=== PATIENT | female | born 1985 | race Caucasian/White ===

== ENCOUNTER 2017-06-14 10:59 | Emergency (ER) | END 2017-06-14 12:49 | disposition left against medical advice (07) | LOC: UCEAST 10:59 | DX: H92.09 Otalgia, unspecified ear (principal); Z53.21 Procedure and treatment not carried out due to patient leaving prior to being seen by health care provider ==

== ENCOUNTER 2022-08-08 08:32 | Inpatient (IN) ==
[2022-08-08] MEDS ORDERED: Buffered Lidocaine 1% SYRIN 1 ml INTRADERM ONE (09:47)
[2022-08-08] MEDS ORDERED: Promethazine INJ(RESTRICTED) 25 MG/ML 1 ml VIAL IV PRN (09:47)
[2022-08-08] MEDS ORDERED: Lactated Ringers 1000 ml BAG 1,000 ML IV ONE ×2 (09:47→22:05)
[2022-08-08] MEDS ORDERED: Nalbuphine 10 MG/ML 1 ML VIAL IV PRN (09:47)
[2022-08-08] MEDS ORDERED: miSOPROStol 100 mcg TAB PO SCH (10:00)
[2022-08-08] MEDS ORDERED: Calcium Carb (TUMS) 500 mg CHEW TAB PO PRN (10:00)
[2022-08-08 11:58] LABS: Urine Benzodiazepine Screen None Detected (None Detect); Urine Cannabinoids Screen None Detected (None Detect); Urine Opiates Screen None Detected (None Detect)
[2022-08-08] MEDS: miSOPROStol 100 mcg TAB PO SCH ×2 (14:44→22:51)
[2022-08-08] MEDS ORDERED: OBEPIDURAL (200 ML) 200 ML EPIDURAL ONE (20:00)
[2022-08-08] MEDS ORDERED: Lidocaine 2% w/ EPI 1:200,000 MPF 20 ML SDV VIAL ONE (20:01)
[2022-08-08] MEDS: Lactated Ringers 1000 ml BAG 1,000 ML IV SCH ×2 (20:05→22:07)
[2022-08-08 20:11] LABS: ABS Eosinophils 0.1 10^3/ul (0-0.6); ABS Lymphocytes 2.1 10^3/ul (1.0-4.8); ABS Monocytes 0.6 10^3/ul (0-0.8); ABS Neutrophils 5.2 10^3/ul (1.5-7.7); Eosinophil % 0.8 %; Hematocrit 38 % (35-47); Hemoglobin 12.7 g/dL (12.0-16.0); Lymphocyte % 26.6 %; Mean Corpuscular HGB Conc 33 g/dL (31-36); Mean Corpuscular Hemoglobin 30 pg (27-31); Mean Corpuscular Volume 91 fL (80-97); Mean Platelet Volume 10.3 fL (7.4-10.4); Platelet Count 194 10^3/uL (150-450); Red Blood Count 4.22 10^6 /uL (3.70-4.87); Red Cell Distribution Width 14 % (10-15)
[2022-08-08 20:38] LABS: Albumin 3.4 g/dL (3.2-5.2); Albumin/Globulin Ratio 1.5 (1-3); Calcium 8.9 mg/dL (8.6-10.3); Creatinine, Serum 0.68 mg/dL (0.51-0.95); Globulin 2.2 g/dL (2-4); Potassium 4.3 mmol/L (3.5-5.0); Total Bilirubin 0.4 mg/dL (0.2-1.0); Total Protein 5.6 g/dL (6.4-8.9); eGFR CKD-EPI 114.3 (>60)
[2022-08-08] MEDS ORDERED: fentaNYL 100 mcg/2 ml 50 MCG/ML VIAL ONE (20:56)
[2022-08-08] MEDS ORDERED: Phenylephrine 40 mcg/mL 10mL (400mcg) SYRINGE IV PUSH PRN ×2 (22:05)
[2022-08-08] MEDS ORDERED: fentaNYL 100 mcg/2 ml 50 MCG/ML VIAL IV ONE (22:05)
[2022-08-08] MEDS ORDERED: Lactated Ringers 1000 ml BAG 500 ML IV PRN ×2 (22:05)
[2022-08-08] MEDS ORDERED: Sodium Citrate/Citric Acid LIQ 15 ML UDC PO PRN (22:05)
[2022-08-08 22:52] LABS: Urine Appearance Clear; Urine Bilirubin Negative (Negative); Urine Blood Negative (Negative); Urine Color Yellow; Urine Glucose Negative (Negative); Urine Ketones Negative (Negative); Urine Nitrite Negative (Negative); Urine Protein 1+(30 mg/dL) (Negative); Urine Specific Gravity 1.023 (1.002-1.030); Urine Urobilinogen Negative (Negative)
[2022-08-08 22:54] LABS: Urine Bacteria Absent (Absent); Urine Red Blood Cell Trace(0-2/hpf) (Absent); Urine Squamous Epithelial Cell Present (Absent); Urine White Blood Cell Trace(0-5/hpf) (Absent)
[2022-08-08] MEDS ORDERED: Oxytocin in LR 20,000 MILLI.UNIT/1,000 ML BAG IV SCH (23:00)
[2022-08-08] MEDS ORDERED: OBEPIDURAL (200 ML) 200 ML EPIDURAL SCH (23:00)
[2022-08-08] MEDS ORDERED: Lactated Ringers 1000 ml BAG 1,000 ML IV SCH (23:00)
[2022-08-09] MEDS ORDERED: Bupivacaine 0.25% SDV PF 10 ML VIAL INJ ONE (04:34)
[2022-08-09] MEDS ORDERED: fentaNYL 100 mcg/2 ml 50 MCG/ML VIAL ONE (04:34)
[2022-08-09] MEDS ORDERED: Witch Hazel PAD JAR TOPICAL PRN (09:51)
[2022-08-09] MEDS ORDERED: Dibucaine 1% OINT 28.35 GM TUBE PR PRN (09:51)
[2022-08-09] MEDS ORDERED: Glycerin ADULT 2.4 gm SUPP PR PRN (09:51)
[2022-08-09] MEDS ORDERED: Oxytocin in LR 20,000 MILLI.UNIT/1,000 ML BAG IV SCH (10:00)
[2022-08-09] MEDS ORDERED: Lactated Ringers 1000 ml BAG 1,000 ML IV SCH (10:00)
[2022-08-09] MEDS ORDERED: Lidocaine 1% VIAL 10 MG/ML VIAL 30 ML ONE (10:10)
[2022-08-10 05:58] LABS: ABS Eosinophils 0.2 10^3/ul (0-0.6); ABS Lymphocytes 2.3 10^3/ul (1.0-4.8); ABS Monocytes 0.6 10^3/ul (0-0.8); ABS Neutrophils 5.2 10^3/ul (1.5-7.7); Hematocrit 34 % (35-47); Lymphocyte % 27.7 %; Mean Corpuscular HGB Conc 33 g/dL (31-36); Mean Corpuscular Hemoglobin 30 pg (27-31); Mean Corpuscular Volume 92 fL (80-97); Mean Platelet Volume 9.4 fL (7.4-10.4); Platelet Count 160 10^3/uL (150-450); Red Blood Count 3.67 10^6 /uL (3.70-4.87); Red Cell Distribution Width 14 % (10-15); White Blood Count 8.3 10^3/uL (3.5-10.8)
[2022-08-10 08:40] VITALS: BP 128/88
== END 2022-08-10 15:13 | disposition home or self-care (01) | DRG 807 ==
LOC: MCHOBOUT 08:32 → MCHOB 09:37
PROVIDERS: ADMIT Registered Nurse; ATTEND Registered Nurse